=== PATIENT | male | born 1965 | race Hispanic/Latino ===

== ENCOUNTER 2017-02-10 07:51 | Emergency (ER) | payer OTHER ==
[2017-02-10] MEDS ORDERED: TORADOL IM ONE (10:05)
[2017-02-10] MEDS ORDERED: ZOFRAN ODT PO ONE (10:05)
[2017-02-10 10:26] LABS: Bacteria,Urine 1+ /HPF (Negative); Bilirubin,Urine NEG (Negative); Blood,Urine MOD (Negative); Ketones,Urine NEG (Negative); Leukocyte Esterase,Urine NEG (Negative); Mucus,Urine 3+ /HPF; Nitrite,Urine NEG (Negative); Protein,Urine <15 mg/dL mg/dL (Negative); Urobilinogen,Urine < 2.0 mg/dL (<2.0); WBC,Urine < 1.0 /HPF (0.0-6.0)
[2017-02-10 10:41] LABS: Basophils % (Auto) 0.3 % (0.0-1.8); Eosinophils % (Auto) 0.2 % (0.0-4.3); Hematocrit 44.9 % (35.5-45.6); Hemoglobin 15.1 gm/dl (11.8-15.2); Mean Corpuscular HGB Conc 34 % (32-34); Mean Corpuscular Hemoglobin 29 pg (28-32); Mean Corpuscular Volume 86 fl (84-94); Platelet Count 277 K/mm3 (140-440); Red Blood Count 5.21 M/mm3 (3.65-5.03); Red Cell Distribution Width 13.5 % (13.2-15.2)
--- NOTE | 2017-02-10 10:58 | XRay Report ---
LUMBAR SPINE RADIOGRAPHS: INDICATION: Midline tenderness. COMPARISON: None similar at this institution. FINDINGS: AP and lateral lumbar spine radiographs demonstrate normal vertebral body stature and alignment. Bony demineralization with lower lumbar spurring. Moderate to severe lower lumbar disc narrowing also suspected with a transitional vertebra not excluded. Mild aortic atherosclerotic calcifications. Nonobstructive bowel gas pattern. Intact SI joints. CONCLUSION: No acute lumbar radiographic abnormality with few degenerative changes noted, as described. Thank you for the opportunity to participate in this patient's care.
[2017-02-10 11:12] LABS: Amylase 65 units/L (27-131); Anion Gap 20 mmol/L; BUN/Creatinine Ratio 14.28; Blood Urea Nitrogen 10 mg/dL (9-20); Calcium 8.9 mg/dL (8.4-10.2); Carbon Dioxide 19 mmol/L (22-30); Chloride 101.8 mmol/L (98-107); Glucose 110 mg/dL (75-100); Lipase 25 units/L (13-60); Potassium 3.9 mmol/L (3.6-5.0); Sodium 137 mmol/L (137-145)
--- NOTE | 2017-02-10 11:38 | Cat Scan Report ---
CT OF THE ABDOMEN AND PELVIS WITHOUT CONTRAST HISTORY: Abdominal pain. TECHNIQUE: Helical CT without contrast. Sagittal and coronal reformatted images. FINDINGS: Clear lung bases. Normal heart size. No acute bony injury. Normal liver, biliary system, pancreas, spleen and adrenal glands. The renal pyramids in both kidneys are slightly hyperdense. A 2 mm calyceal stone is identified in the mid right kidney. No hydronephrosis. The ureters and bladder are unremarkable. There are numerous diverticula in the distal colon. No acute inflammatory changes. There appear to be a few mildly thickened small bowel loops in the midabdomen of uncertain significance. This may represent a mild enteritis. Normal appendix. The aorta is normal caliber. No evidence for ascites, adenopathy or acute inflammation. IMPRESSION: Consider a mild enteritis. 2 mm right renal stone, nonobstructing. Diverticulosis of the distal colon. No acute inflammatory changes appreciated.
--- NOTE | 2017-02-10 11:49 | Emergency Department Report ---
HPI - General Chief Complaint: Back Pain/Injury Time Seen by Provider: 02/10/17 09:35 - HPI HPI: 51-year-old male presents today with history of lower back pain that worsened 6 months ago. Patient has history of kidney stones. Patient was seen by primary care provider and diagnosed with hematuria. He was prescribed ciprofloxacin 10 days with his last does being 02/07/2017. Ultrasound was ordered however patient has not a chance to get it done. Patient states he experienced dizziness, blurred vision and confusion while taking Cipro, which has now mostly resolved. Also complaining of bilateral flank pain wrapping around to his lower abdomen. Positive for chills, nausea, vomiting, abdominal pain. Describes his pain as 10 on a 10 constant, throbbing ache that worsens with movement. Tried Ultram with some relief but states that it makes him drowsy. Denies numbness, weakness, paresthesias. Denies bowel or bladder incontinence. Denies chest pain or shortness of breath. ED Past Medical Hx - Past Medical History Previous Medical History?: Yes Hx Kidney Stones: Yes - Surgical History Past Surgical History?: No - Social History Smoking Status: Current Some Day Smoker Substance Use Type: None - Medications Home Medications: Home Medications Medication Instructions Recorded Confirmed Last Taken Type Acetaminophen/Codeine [Tylenol #3] 1 tab PO Q6H PRN #12 tab 02/10/17 Unknown Rx Ondansetron [Zofran Odt] 4 mg PO Q8HR #20 tab.rapdis 02/10/17 Unknown Rx ED Review of Systems ROS: Stated complaint: BACK PAIN Other details as noted in HPI Constitutional: chills. denies: fever, malaise Eyes: denies: eye pain ENT: denies: ear pain, throat pain, congestion Respiratory: denies: cough, shortness of breath, wheezing Cardiovascular: denies: chest pain, palpitations Endocrine: no symptoms reported Gastrointestinal: abdominal pain, nausea, vomiting. denies: diarrhea, constipation Genitourinary: hematuria. denies: urgency, dysuria, frequency, discharge Musculoskeletal: back pain Neurological: denies: headache, weakness, numbness, paresthesias Physical Exam - Physical Exam Vital Signs: Vital Signs 02/10/17 07:54 Temperature 98.6 F Pulse Rate 91 H Respiratory 18 Rate Blood Pressure 125/80 O2 Sat by Pulse 98 Oximetry Physical Exam: GENERAL: The patient is well-developed and well-nourished. Patient is in NAD. HEAD: Normocephalic. Atraumatic. NECK: Full range of motion. No midline or paraspinal tenderness to palpation. BACK: Full ROM. Positive for midline and paraspinal tenderness of the lumbar region. No tenderness to palpation of the sciatic notch bilaterally. Negative straight leg raise bilaterally. CHEST/LUNGS: Clear to auscultation throughout. HEART/CARDIOVASCULAR: Regular rate and rhythm. No murmurs, rubs or gallops. ABDOMEN: Abdomen is soft. Generalized tenderness to palpation. Bowel sounds normoactive. No guarding or rebound tenderness. EXTREMITIES: Peripheral pulses intact. Capillary refill less than 2 seconds. NEURO: Alert and oriented x 3. Normal gait. ED Course Vital Signs 02/10/17 07:54 Temperature 98.6 F Pulse Rate 91 H Respiratory 18 Rate Blood Pressure 125/80 O2 Sat by Pulse 98 Oximetry ED Medical Decision Making - Lab Data Result diagrams: 02/10/17 10:21 02/10/17 10:21 Vital Signs 02/10/17 07:54 Temperature 98.6 F Pulse Rate 91 H Respiratory 18 Rate Blood Pressure 125/80 O2 Sat by Pulse 98 Oximetry Lab Results 02/10/17 02/10/17 02/10/17 Range/Units 10:21 10:21 Unknown WBC 10.0 (4.5-11.0) K/mm3 RBC 5.21 H (3.65-5.03) M/mm3 Hgb 15.1 (11.8-15.2) gm/dl Hct 44.9 (35.5-45.6) % MCV 86 (84-94) fl MCH 29 (28-32) pg MCHC 34 (32-34) % RDW 13.5 (13.2-15.2) % Plt Count 277 (140-440) K/mm3 Lymph % (Auto) 6.6 L (13.4-35.0) % [place] % (Auto) 6.1 (0.0-7.3) % Eos % (Auto) 0.2 (0.0-4.3) % Baso % (Auto) 0.3 (0.0-1.8) % Lymph # 0.7 L (1.2-5.4) K/mm3 [place] # 0.6 (0.0-0.8) K/mm3 Eos # 0.0 (0.0-0.4) K/mm3 Baso # 0.0 (0.0-0.1) K/mm3 Seg Neutrophils % 86.8 H (40.0-70.0) % Seg Neutrophils # 8.7 H (1.8-7.7) K/mm3 Sodium 137 (137-145) mmol/L Potassium 3.9 (3.6-5.0) mmol/L Chloride 101.8 (98-107) mmol/L Carbon Dioxide 19 L (22-30) mmol/L Anion Gap 20 mmol/L BUN 10 (9-20) mg/dL Creatinine 0.7 L (0.8-1.5) mg/dL Estimated GFR > 60 ml/min BUN/Creatinine Ratio 14.28 % Glucose 110 H (75-100) mg/dL Calcium 8.9 (8.4-10.2) mg/dL Amylase 65 (27-131) units/L Lipase 25 (13-60) units/L Urine Color Yellow (Yellow) Urine Turbidity Clear (Clear) Urine pH 6.0 (5.0-7.0) Ur Specific [place] 1.020 (1.003-1.030) Urine Protein <15 mg/dl (Negative) mg/dL Urine Glucose (UA) Neg (Negative) mg/dL Urine Ketones Neg (Negative) mg/dL Urine Blood Mod (Negative) Urine Nitrite Neg (Negative) Urine Bilirubin Neg (Negative) Urine Urobilinogen < 2.0 (<2.0) mg/dL Ur Leukocyte Esterase Neg (Negative) Urine WBC (Auto) < 1.0 (0.0-6.0) /HPF Urine RBC (Auto) 8.0 (0.0-6.0) /HPF Urine Bacteria (Auto) 1+ (Negative) /HPF Urine Mucus 3+ /HPF - Radiology Data Radiology results: report reviewed LUMBAR SPINE RADIOGRAPHS: INDICATION: Midline tenderness. COMPARISON: None similar at this institution. FINDINGS: AP and lateral lumbar spine radiographs demonstrate normal vertebral body stature and alignment. Bony demineralization with lower lumbar spurring. Moderate to severe lower lumbar disc narrowing also suspected with a transitional vertebra not excluded. Mild aortic atherosclerotic calcifications. Nonobstructive bowel gas pattern. Intact SI joints. CONCLUSION: No acute lumbar radiographic abnormality with few degenerative changes noted, as described. CT OF THE ABDOMEN AND PELVIS WITHOUT CONTRAST HISTORY: Abdominal pain. TECHNIQUE: Helical CT without contrast. Sagittal and coronal reformatted images. FINDINGS: Clear lung bases. Normal heart size. No acute bony injury. Normal liver, biliary system, pancreas, spleen and adrenal glands. The renal pyramids in both kidneys are slightly hyperdense. A 2 mm calyceal stone is identified in the mid right kidney. No hydronephrosis. The ureters and bladder are unremarkable. There are numerous diverticula in the distal colon. No acute inflammatory changes. There appear to be a few mildly thickened small bowel loops in the midabdomen of uncertain significance. This may represent a mild enteritis. Normal appendix. The aorta is normal caliber. No evidence for ascites, adenopathy or acute inflammation. IMPRESSION: Consider a mild enteritis. 2 mm right renal stone, nonobstructing. Diverticulosis of the distal colon. No acute inflammatory changes appreciated. - Medical Decision Making 51-year-old male presents today with lower back pain, abdominal pain, nausea and vomiting. His lumbar x-rays also revealed no acute process. CT of his abdomen and pelvis reveals a 2 mm right renal stone, nonobstructing and diverticulosis of the distal colon with no acute inflammatory changes appreciated. His lab results are within normal limits and his urinalysis reveals blood and urine. Patient reports decrease in pain level to a 2 out of 10 post medication. Patient has been provided with a referral for urologist and pain clinic. Patient is in no acute distress at this time. He will be discharged home and is encouraged to follow up with a primary care provider. He will be sent home on Tylenol 3 and Zofran and is encouraged to return to the emergency room for any worsening symptoms. Critical care attestation.: If time is entered above; I have spent that time in minutes in the direct care of this critically ill patient, excluding procedure time. ED Disposition Clinical Impression: Hematuria Low back pain Qualifiers: Chronicity: chronic Back pain laterality: midline Sciatica presence: without sciatica Qualified Code(s): M54.5 - Low back pain; G89.29 - Other chronic pain Disposition: DISCHARGED TO HOME OR SELFCARE Is pt being admited?: No Does the pt Need Aspirin: No Condition: Stable Instructions: Chronic Back Pain (ED), Acute Hematuria (ED) Additional Instructions: Follow-up with primary care provider and urologist. Return to the emergency department if symptoms worsen. Prescriptions: Acetaminophen/Codeine [Tylenol #3] 1 tab PO Q6H PRN #12 tab PRN Reason: Pain Ondansetron [Zofran Odt] 4 mg PO Q8HR #20 tab.rapdis Referrals: PRIMARY MD MIKAYLA [Primary Care Provider] - 3-5 Days SOPHIA OLIVER MD [Staff Physician] - 3-5 Days [facility] [Provider Group] - 3-5 Days Forms: Work/School Release Form(ED), Accompanied Note Time of Disposition: 11:59
[2017-02-10 12:08] VITALS: BP 120/78
== END 2017-02-10 12:39 | disposition home or self-care (01) ==
LOC: ED 07:51
DX: R31.9 Hematuria, unspecified (principal); M54.5 Low back pain; G89.29 Other chronic pain; F17.200 Nicotine dependence, unspecified, uncomplicated
CPT/HCPCS: 36415; 72100; 74176; 80048; 81001; 82150; 83690; 85025; 96372; 99284; J1885; Q0162